=== PATIENT | male | born 1995 | race Caucasian/White ===

== ENCOUNTER → 2024-02-01 | Outpatient (CLI) | payer BC ==
[2024-02-01 14:56] VITALS: BP 133/74; PULSE 68; RESP 16; TEMP 98.3
--- NOTE | 2024-02-01 15:49 | P.SLEEP ---
History of Present Illness H&P Date: 02/01/24 This is a pleasant 28-year-old male patient, who is coming in with loud snoring and excessive sleepiness during the day with an Hamilton score of 16. His girlfriend has noted loud snoring to the point where she is unable to sleep next to him. The patient snores quite loud and he occasionally wakes up because of a loud snort or gasp. His sleep seems to be fragmented. He goes to bed at around 9 PM and wakes at 4:30 AM in the morning as the patient works in [employer] for [employer], and he has to drive more than an hour from [place] around to his work location and sometimes he gets quite tired and struggles to stay awake. He denies fall asleep behind the wheel. No history of any motor vehicle accidents because of feeling sleepy. He goes to bed around 11 PM, wakes up 8 AM in the morning on the weekends. During his workdays, he has to use several alarms to get himself awakened from sleep. No sleep paralysis. No hallucinations. No cataplexy. No restlessness in his lower extremities. No dreaming. No nightmares. No night terrors. He drinks beer over the weekend, 12 pack beer throughout the weekend. No alcohol drinking during the day. No smoking. No substance abuse. No medical problems or comorbidities. He is quite healthy. Does not take any medication. No personal or family history of sleep apnea. No excessive utilization of caffeinated beverages or energy drinks. No nocturnal seizures. No heartburn. No chest pain. No shortness of breath. Review of Systems Constitutional: Reports daytime sleepiness Eyes: denies as per HPI, denies blurred vision, denies bulging eye, denies decreased vision, denies diplopia, denies discharge, denies dry eye, denies irritation, denies itching, denies pain, denies photophobia, denies loss of peripheral vision, denies loss of vision, denies tunnel vision/blind spots Ears: deny: decreased hearing, ear discharge, earache, tinnitus Ears, nose, mouth and throat: Reports as per HPI Breasts: absent: as per HPI, gynecomastia Cardiovascular: Reports as per HPI Respiratory: Reports snoring Gastrointestinal: Reports as per HPI Genitourinary: Reports as per HPI Musculoskeletal: Reports as per HPI Musculoskeletal: absent: ankle pain, ankle stiffness, ankle swelling, as per HPI, elbow pain, elbow stiffness, elbow swelling, foot pain, foot stiffness, foot swelling, hand pain, hand stiffness, hand swelling, hip pain, hip stiffness, hip swelling, knee pain, knee stiffness, knee swelling, shoulder pain, shoulder stiffness, shoulder swelling, wrist pain, wrist stiffness, wrist swelling Integumentary: Reports as per HPI Neurological: Reports as per HPI Psychiatric: Reports sleep disturbances Endocrine: Reports as per HPI, Reports fatigue Hematologic/Lymphatic: Reports as per HPI Allergic/Immunologic: Reports as per HPI Past Medical History Additional Past Medical History / Comment(s): headaches, snoring, 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, 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) History of Any Multi-Drug Resistant Organisms: None Reported Past Surgical History: No Surgical Hx Reported Past Psychological History: No Psychological Hx Reported Smoking Status: Former smoker Past Alcohol Use History: Occasional Past Drug Use History: None Reported - Past Family History Father Additional Family Medical History / Comment(s): snoring (mom, brothers, uncles also snore) Mother Additional Family Medical History / Comment(s): headaches Medications and Allergies Home Medications and Allergies Comment(s): None Physical Exam Vitals: Vital Signs Temp Pulse Resp BP Pulse Ox 02/01/24 14:54 98.3 F 68 16 133/74 97 Intake and Output 02/01/24 02/01/24 02/01/24 06:59 14:59 22:59 Other: Weight 91.342 kg The patient appeared well nourished and normally developed. Vital signs as documented. Head exam is unremarkable. No scleral icterus or corneal arcus noted. Neck is without jugular venous distension, thyromegaly, or carotid bruits. The patient is a Mallampati class IV with significant crowding of the posterior pharynx. He also has an artificial eye. Carotid upstrokes are brisk bilaterally. Lungs are clear to auscultation and percussion. Cardiac exam reveals the PMI to be normally sized and situated. Rhythm is regular. First and second heart sounds normal. No murmurs, rubs or gallops. Abdominal exam reveals normal bowel sounds, no masses, no organomegaly and no aortic enlargement. Extremities are nonedematous and both femoral and pedal pulses are normal. Examination of the skin revealed no evidence of significant rashes, suspicious appearing nevi or other concerning lesions. Neurologically, the patient is awake and alert and the patient does not have any focal neurological deficit. Cranial nerves are essentially intact. Assessment and Plan Plan: Loud snoring Chronic hypersomnia and sleepiness, Hamilton score of 16 Body mass index of 30.3 Mallampati class IV Plan Increase likelihood for obstructive sleep apnea. The patient will need further investigation. Will set up the patient point for screening polysomnography to rule out obstructive sleep apnea. Meanwhile, the patient is to avoid alcohol drinking at least 3 hours prior to going to bed. Maintain good sleep hygiene measures. Avoid driving especially when feeling drowsy or sleepy. Will make further recommendations based on the results of the polysomnography. Sleep Note - Sleep Data ESS Total: 16 - Sleep Note Sleep Note: Temperature: 98.3 F Pulse Rate: 68 Respiratory Rate: 16 Blood Pressure: 133/74 SpO2: 97 Height: 5 ft 8.2 in Weight: 91.342 kg BMI: Neck Circumference: 16.2
== END ==
LOC: 3 N SLEEP 14:46
PROVIDERS: ATTEND Internal Medicine Critical Care Medicine
CPT/HCPCS: 99211

== ENCOUNTER 2024-02-23 19:42 | Outpatient (CLI) | payer BC ==
--- NOTE | 2024-02-24 16:14 | P.PCN ---
Date of Procedure: 02/23/24 Operative Findings: Polysomnography report Date of service is 02/23/2024 History This is a pleasant 28-year-old male patient, who is coming in with loud snoring and excessive sleepiness during the day with an Howells score of 16. His girlfriend has noted loud snoring to the point where she is unable to sleep next to him. The patient snores quite loud and he occasionally wakes up because of a loud snort or gasp. His sleep seems to be fragmented. He goes to bed at around 9 PM and wakes at 4:30 AM in the morning as the patient works in [employer] for [employer], and he has to drive more than an hour to his work location and sometimes he gets quite tired and struggles to stay awake. He denies fall asleep behind the wheel. No history of any motor vehicle accidents because of feeling sleepy. He goes to bed around 11 PM, wakes up 8 AM in the morning on the weekends. During his workdays, he has to use several alarms to get himself awakened from sleep. No sleep paralysis. No hallucinations. No cataplexy. No restlessness in his lower extremities. No dreaming. No nightmares. No night terrors. He drinks beer over the weekend, 12 pack beer throughout the weekend. No alcohol drinking during the day. No smoking. No substance abuse. No medical problems or comorbidities. He is quite healthy. Does not take any medication. No personal or family history of sleep apnea. No excessive utilization of caffeinated beverages or energy drinks. No nocturnal seizures. No heartburn. No chest pain. No shortness of breath. Noted the patient has a prosthetic left eye Pertinent physical findings The patient has a body mass index of 30.6 with a weight of 201 pounds. Technical description The patient was studied using a standard complex polysomnography protocol that included recording of the Lead II EKG, Central, occipital and frontal EEG, right and left outer canthus EOG, submental EMG, right and left anterior tibialis EMG, respiratory airflow by thermocouple and or pressure/flow transducer, respiratory efforts by abdominal and thoracic PVDF belts, oxygen saturation by cable oximetry. Position by observation synchronized the PSG. Equipment used: [employer]. Sleep architecture The total recording duration was 432.5 minutes. The total sleep time was 373.0 minutes. The wake after sleep onset time was 46.5 minutes. Latency to sleep onset was 11 minutes. The total sleep efficiency was 86.2%. The sleep architecture was characterized by 9.1% stage I, 62.5% stage II, 9.9% stage III and a total of 18.5% REM sleep. The total arousal index was 9.2. Latency to REM sleep was 73.5 minutes. Respiratory analysis The sleep study showed a total of 43 obstructive events of which 4 were obstructive apneas, 1 was mixed apnea and 38 were obstructive hypopneas. The resulting apnea-hypopnea index was 6.6. No central apneas was noted. Noted the respiratory events were essentially in the form of obstructive hypopneas. The patient's disease was nonpositional. No worsening during REM sleep. Oxygenation analysis The baseline pulse ox was 97% on room air oxygen. The lowest oxygen saturation was 88% and the patient spent approximately 4 minutes of sleep time below pulse ox of 89%. Minimum pulse ox during REM was 88%. Sleep continuity summary A total of 57 arousals were encountered with an index of 9.2. Respiratory arousal index was 0.3 Periodic limb movements A total of 42 periodic limb movement activity was counted with an index of 6.8. There were 4 periodic limb movement activity with arousals with an index of 0.6. Cardiac summary The average heart rate was 52 with a minimum heart rate of 48 and a maximum heart of 58 Assessment Mild obstructive sleep apnea with an AHI of 6.6, no significant oxygen desaturations Loud snoring Chronic hypersomnia with an Howells score of 16 Adequate sleep architecture with some reduction in the overall sleep efficiency No significant PLM with activity No significant arousals/sleep fragmentation Obesity with a BMI of 30.6 Plan Will discuss findings with the patient. This is a case of mild obstructive sleep apnea and the patient's symptoms are quite out of proportion to the severity of his sleep apnea. In fact, we will need to look for other causes contributing to this patient's increased sleepiness other than obstructive sleep apnea. For now, we will going to implement conservative measures of losing weight, avoiding alcohol drinking at least 3 hours prior to going to bed, maintaining regular sleep schedule and working on sleep hygiene measures. He may consider an APAP treatment on a trial basis to evaluate and see if there is going to be any improvement in his daytime level of alertness. At the same time, other comorbidities contributing to his increased fatigue and daytime sleepiness need to be evaluated and causes other than sleep apnea need to be considered in this patient.
== END 2024-02-24 05:40 | disposition home or self-care (01) ==
LOC: 3 N SLEEP 19:42
PROVIDERS: ATTEND Internal Medicine Critical Care Medicine
CPT/HCPCS: 95810

== ENCOUNTER 2024-03-14 17:09 | Emergency (ER) | payer BC ==
[2024-03-14 17:15] VITALS: RESP 18
[2024-03-14] MEDS: LIDOCAINE 1% INJ 10MG/ML (20 ML MDV) SQ ONE (17:42)
--- NOTE | 2024-03-14 17:42 | ED ---
General Adult HPI - General Chief complaint: Recheck/Abnormal Lab/Rx Stated complaint: hiccups, sore on back Time Seen by Provider: 03/14/24 17:25 Source: patient, RN notes reviewed Mode of arrival: ambulatory Limitations: no limitations - History of Present Illness Initial comments: Patient is a 28-year-old male present to the emergency department with concern for a spot on his tailbone. Patient states he is had this for over a week and it is painful. Patient went to urgent care and had a steroid shot and antibiotic shot. Patient also started on antibiotics. Patient has been having hiccups for the past 3 days. - Related Data Previous Rx's Medication Instructions Recorded Metoclopramide HCl [Reglan] 10 mg PO Q6HR PRN #20 tablet 03/14/24 Allergies Allergy/AdvReac Type Severity Reaction Status Date / Time peanut Allergy Anaphylaxis Verified 03/14/24 17:16 shellfish derived [Shellfish] Allergy Swelling Verified 03/14/24 17:16 Review of Systems ROS Statement: Those systems with pertinent positive or pertinent negative responses have been documented in the HPI. ROS Other: All systems not noted in ROS Statement are negative. 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) History of Any Multi-Drug Resistant Organisms: None Reported Past Surgical History: No Surgical Hx Reported Additional Past Surgical History / Comment(s): [place] teeth removed (03/03/24) Past Psychological History: No Psychological Hx Reported Smoking Status: Current some day smoker, [employer] Past Alcohol Use History: Occasional Past Drug Use History: None Reported - Past Family History Father Additional Family Medical History / Comment(s): snoring (mom, brothers, uncles also snore) Mother Additional Family Medical History / Comment(s): headaches General Exam Limitations: no limitations General appearance: alert, in no apparent distress Head exam: Present: normocephalic Eye exam: Present: normal appearance Neck exam: Present: normal inspection Respiratory exam: Present: normal lung sounds bilaterally Cardiovascular Exam: Present: regular rate, normal rhythm GI/Abdominal exam: Present: soft. Absent: tenderness Rectal exam: Present: other (Pilonidal abscess) Extremities exam: Present: normal inspection Neurological exam: Present: alert Psychiatric exam: Present: normal affect, normal mood Skin exam: Present: other (Pilonidal abscess) Course Vital Signs 03/14/24 17:11 Temperature 97.6 F Pulse Rate 63 Respiratory 18 Rate Blood Pressure 116/72 O2 Sat by Pulse 100 Oximetry Procedures - Incision & Drainage Consent Obtained: verbal consent Indication: Pilonidal abscess Site: buttock Size (cm): 3 Anesthetic Used: lidocaine 1% Amount (mLs): 5 I&D Cleaning Method: Betadine Scalpel Used: #11 I&D Drainage Obtained: Pus Loculation Noted: probing needed to break Patient Tolerated Procedure: well, no complications Medical Decision Making - Medical Decision Making Was pt. sent in by a medical professional or institution (, PA, ETHICS MANAGER, urgent care, hospital, or half-way...) When possible be specific @ -No Did you speak to anyone other than the patient for history (EMS, parent, family, police, friend...)? What history was obtained from this source @ -Female accompanying patient helps provide history of medications that patient is on including Bactrim and Keflex Did you review nursing and triage notes (agree or disagree)? Why? @ -I reviewed and agree with nursing and triage notes Were old charts reviewed (outside hosp., previous admission, EMS record, old EKG, old radiological studies, urgent care reports/EKG's, half-way records)? Report findings @ -No old charts were reviewed Differential Diagnosis (chest pain, altered mental status, abdominal pain women, abdominal pain men, vaginal bleeding, weakness, fever, dyspnea, syncope, headache, dizziness, GI bleed, back pain, seizure, CVA, palpatations, mental health, musculoskeletal)? @ -Differential Fever: Pneumonia, viral URI, endocarditis, myocarditis, pericarditis, otitis, sinusitis, peritonsillar Abscess, retropharyngeal Abscess, epiglottitis, peritonitis, appendicitis, Nilam cystitis, diverticulitis, hepatitis, colitis, UTI, PID, TOA, pyelonephritis, prostatitis, epididymitis, meningitis, encephalitis, pulmonary embolism, CVA, thyroid storm, pancreatitis, adrenal crisis, cavernous sinus thrombosis, this is not meant to be an all-inclusive list. EKG interpreted by me (3pts min.). @ -As above X-rays interpreted by me (1pt min.). @ -None done CT interpreted by me (1pt min.). @ -None done U/S interpreted by me (1pt. min.). @ -None done What testing was considered but not performed or refused? (CT, X-rays, U/S, labs)? Why? @ -None What meds were considered but not given or refused? Why? @ -None Did you discuss the management of the patient with other professionals (professionals i.e. Dr., PA, ETHICS MANAGER, lab, RT, psych nurse, geriatric social work professor, spring intern, teacher, medical information officer, catalytic case operator)? Give summary @ -No Was smoking cessation discussed for >3mins.? @ -No Was critical care preformed (if so, how long)? @ -No Were there social determinants of health that impacted care today? How? (Homelessness, low income, unemployed, alcoholism, drug addiction, transportation, low edu. Level, literacy, decrease access to med. care, fci, rehab)? @ -No Was there de-escalation of care discussed even if they declined (Discuss DNR or withdrawal of care, Hospice)? DNR status @ -No What co-morbidities impacted this encounter? (DM, HTN, Smoking, COPD, CAD, Cancer, CVA, ARF, Chemo, Hep., AIDS, mental health diagnosis, sleep apnea, morbid obesity)? @ -None Was patient admitted / discharged? Hospital course, mention meds given and route, prescriptions, significant lab abnormalities, going to OR and other pertinent info. @ -Patient presents with pilonidal abscess. Incision and drainage performed. Patient will be discharged and recommended continue antibiotics. Prescription provided for hiccups. Undiagnosed new problem with uncertain prognosis? @ -No Drug Therapy requiring intensive monitoring for toxicity (Heparin, Nitro, Insulin, Cardizem)? @ -No Were any procedures done? @ -Incision and drainage, see above Diagnosis/symptom? @ -Pilonidal abscess, hiccups Acute, or Chronic, or Acute on Chronic? @ -Acute, acute Uncomplicated (without systemic symptoms) or Complicated (systemic symptoms)? @ -Default Side effects of treatment? @ -No Exacerbation, Progression, or Severe Exacerbation? @ -No Poses a threat to life or bodily function? How? (Chest pain, [place], [place], pneumonia, PE, COPD, DKA, ARF, appy, cholecystitis, CVA, Diverticulitis, Homicidal, Suicidal, threat to staff... and all critical care pts) @ -No Disposition Clinical Impression: Pilonidal abscess, Hiccups Disposition: HOME SELF-CARE Condition: Stable Instructions (If sedation given, give patient instructions): Abscess Incision and Drainage (ED), Abscess (ED) Additional Instructions: Please do follow-up with primary care physician in the next couple of days for recheck. If symptoms continue consider surgical follow-up. Return for fever, increased pain, worsening or changing symptoms or any other concerns. Continue antibiotics. Prescription for hiccups has been sent to pharmacy. Prescriptions: Metoclopramide HCl [Reglan] 10 mg PO Q6HR PRN #20 tablet PRN Reason: Nausea Is patient prescribed a controlled substance at d/c from ED?: No Referrals: Jose Guadalupe Trevino MD [STAFF PHYSICIAN] - 1-2 days Nicolasa Goss DO [Doctor of Osteopathic Medicine] - 1-2 days Time of Disposition: 18:29
[2024-03-14] MEDS: METOCLOPRAMIDE 10 MG TAB PO STA (18:40)
[2024-03-14 18:43] VITALS: BP 112/71; PULSE 65; TEMP 97.8
== END 2024-03-14 18:42 | disposition home or self-care (01) ==
LOC: EC 17:09
CPT/HCPCS: 10080; 87070; 87075; 87205; 99283